=== PATIENT | female | born 1950 | race Caucasian/White ===

== ENCOUNTER → 2020-03-08 | Day surgery (SDC) | payer MEDICARE ==
[2020-03-05 13:02] LABS: BASOPHILS % 0.6 % (0.0-1.0); EOSINOPHILS # (AUTO) 0.2 (0.0-0.4); EOSINOPHILS % 2.1 % (0.0-6.0); HEMATOCRIT 42.7 % (34.2-44.1); HEMOGLOBIN 14.3 g/dL (12.0-16.0); LYMPHOCYTES # (AUTO) 2.1 (1.0-3.2); LYMPHOCYTES % 29.2 % (18.0-39.1); MEAN CORPUSCULAR HEMOGLOBIN 28.8 pg (28-32); MEAN CORPUSCULAR HGB CONC 33.5 g/dL (31-35); MEAN CORPUSCULAR VOLUME 85.9 fL (81-99); MONOCYTES # (AUTO) 0.4 (0.2-0.8); MONOCYTES % 5.5 % (4.4-11.3); NEUTROPHILS # (AUTO) 4.4 (2.1-6.9); NEUTROPHILS % 62.2 % (38.7-80.0); PLATELET COUNT 233 x10e3/uL (140-360); RED BLOOD COUNT 4.97 x10e6/uL (3.6-5.1)
[~2020-03-08] MED LIST: DIABETIC MED PO; KETAMINE HCL INJ 50 MG/ML 10 ML VIAL ONE; LIDOCAINE HCL 2% LOCAL INJ 5 ML SDV VIAL INJ ONE; METFORMIN HCL500 M2 PO; METOPROLOL SUCC50 MG PO; MIDAZOLAM HCL 2 MG/2 ML VIAL ONE; OMEPRAZOLE40 MG PO; PROPOFOL IV EMULSION 10 MG/ML 20 ML VIAL ONE; SIMVASTATIN20 MG PO; ZOFRAN4 MG PO
[2020-03-08 08:05] VITALS: BP 151/61
== END | disposition home or self-care (01) ==
LOC: OR 05:45 → EDSEX 07:30
PROVIDERS: ATTEND Internal Medicine Gastroenterology
DX: K29.50 Unspecified chronic gastritis without bleeding (principal); K21.9 Gastro-esophageal reflux disease without esophagitis; K44.9 Diaphragmatic hernia without obstruction or gangrene; Z71.3 Dietary counseling and surveillance; K76.0 Fatty (change of) liver, not elsewhere classified; E66.01 Morbid (severe) obesity due to excess calories; E11.9 Type 2 diabetes mellitus without complications; E78.00 Pure hypercholesterolemia, unspecified; I10 Essential (primary) hypertension; Z01.810 Encounter for preprocedural cardiovascular examination; Z01.812 Encounter for preprocedural laboratory examination; Z20.828 Contact with and (suspected) exposure to other viral communicable diseases; Z79.84 Long term (current) use of oral hypoglycemic drugs; Z68.42 Body mass index [BMI] 45.0-49.9, adult
CPT/HCPCS: 36415 ×2; 43239; 82948; 85025; 93005; J2001; J2250; J2704; U0002; 43235

== ENCOUNTER → 2023-05-06 | Outpatient (REF) | payer OTHER ==
[~2023-05-06] MED LIST changes: -KETAMINE HCL INJ 50 MG/ML 10 ML VIAL ONE; -LIDOCAINE HCL 2% LOCAL INJ 5 ML SDV VIAL INJ ONE; -MIDAZOLAM HCL 2 MG/2 ML VIAL ONE; -PROPOFOL IV EMULSION 10 MG/ML 20 ML VIAL ONE; +REGADENOSON 0.4 MG/5 ML SYR IV ONE
== END ==
LOC: NM 09:44
PROVIDERS: ATTEND Internal Medicine Cardiovascular Disease
DX: Z01.810 Encounter for preprocedural cardiovascular examination (principal); R06.02 Shortness of breath
CPT/HCPCS: 78452; 93017; A9502; J2785

== ENCOUNTER 2023-12-12 23:22 | Emergency (ER) | payer MEDICARE, OTHER ==
[~2023-12-12] VITALS: Ht 154.9 cm; Wt 113.4 kg
[~2023-12-12 23:22] MED LIST changes: -REGADENOSON 0.4 MG/5 ML SYR IV ONE
[2023-12-12 23:44] VITALS: TEMP 98.5
[2023-12-13 00:02] LABS: BASOPHILS # (AUTO) 0.1 (0.0-0.1); BASOPHILS % 0.6 % (0.0-1.0); EOSINOPHILS # (AUTO) 0.1 (0.0-0.4); EOSINOPHILS % 1.7 % (0.0-6.0); HEMATOCRIT 31.9 % (34.2-44.1); HEMOGLOBIN 10.5 g/dL (12.0-16.0); LYMPHOCYTES # (AUTO) 1.6 (1.0-3.2); LYMPHOCYTES % 20.4 % (18.0-39.1); MEAN CORPUSCULAR HEMOGLOBIN 28.4 pg (28-32); MEAN CORPUSCULAR HGB CONC 32.9 g/dL (31-35); MEAN CORPUSCULAR VOLUME 86.2 fL (81-99); MONOCYTES # (AUTO) 0.4 (0.2-0.8); MONOCYTES % 5.4 % (4.4-11.3); NEUTROPHILS # (AUTO) 5.5 (2.1-6.9); NEUTROPHILS % 71.3 % (38.7-80.0); PLATELET COUNT 342 x10e3/uL (140-360); WHITE BLOOD COUNT 7.78 x10e3/uL (4.8-10.8)
[2023-12-13] MEDS: SODIUM CHLORIDE 0.9% 1000ML 1,000 ML IV STA (00:26)
[2023-12-13 00:40] LABS: ALANINE AMINOTRANSFERASE 14 IU/L (0-55); ALBUMIN 3.1 g/dL (3.5-5.0); ALBUMIN/GLOBULIN RATIO 0.8 (0.8-2.0); ALKALINE PHOSPHATASE 92 IU/L (40-150); ANION GAP 14.5 mmol/L (8-16); BILIRUBIN,TOTAL 0.7 mg/dL (0.2-1.2); BLOOD UREA NITROGEN 17 mg/dL (7-26); BUN/CREATININE RATIO 18 (6-25); CARBON DIOXIDE 23 mmol/L (22-29); CHLORIDE 103 mmol/L (98-107); CREATINE KINASE 45 IU/L (29-168); CREATININE, SERUM 0.93 mg/dL (0.57-1.11); EST GLOMERULAR FILTRATION RATE 65 ML/MIN (>=60); GLUCOSE 157 mg/dL (74-118); POTASSIUM 4.5 mmol/L (3.5-5.1); SODIUM 136 mmol/L (136-145); TOTAL PROTEIN 6.8 g/dL (6.5-8.1)
[2023-12-13 00:53] LABS: TROPONIN I < 0.001 ng/mL (0-0.300)
[2023-12-13] MEDS ORDERED: IOPAMIDOL 370 MG/ML 100 ML INFUS..BTL INJ ONE (01:01)
[2023-12-13] MEDS ORDERED: ONDANSETRON ODT4 MG PO (01:56)
[2023-12-13] MEDS ORDERED: ACETAMINOPHEN-1 EAC4 PO (01:56)
[2023-12-13] MEDS ORDERED: Morphine 4mg INJECTION 4 MG/ML INJ ONE (02:08)
[2023-12-13] MEDS: Morphine 4mg INJECTION 4 MG/ML INJ IV STA (02:17)
[2023-12-13] MEDS: ONDANSETRON HCL INJ 2MG/ML 2ML 2 MG/ML VIAL IV STA (02:17)
[2023-12-13 02:35] VITALS: PULSE 73; RESP 17
[2023-12-13 02:51] VITALS: BP 153/59; O2SAT 97
== END 2023-12-13 02:46 | disposition home or self-care (01) ==
LOC: ER 23:30
DX: R10.31 Right lower quadrant pain (principal); C78.6 Secondary malignant neoplasm of retroperitoneum and peritoneum; R18.8 Other ascites; R11.0 Nausea; E11.65 Type 2 diabetes mellitus with hyperglycemia; I10 Essential (primary) hypertension; R16.2 Hepatomegaly with splenomegaly, not elsewhere classified
CPT/HCPCS: 36415; 74177; 80053; 82550; 83690; 84484; 85025; 93005; 99284; J2270; J2405; J7030; Q9967